=== PATIENT | female | born 1995 | race African-American/Black ===

== ENCOUNTER 2017-11-17 11:47 | Emergency (ER) | payer MEDICAID ==
[~2017-11-17] VITALS: Ht 167.6 cm; Wt 63.5 kg
[2017-11-17 11:59] VITALS: BP 124/83
== END 2017-11-17 15:21 | disposition left against medical advice (07) ==
LOC: ER 11:47
DX: H57.13 Ocular pain, bilateral (principal); Z53.21 Procedure and treatment not carried out due to patient leaving prior to being seen by health care provider